=== PATIENT | male | born 1950 | race Hispanic/Latino ===

== ENCOUNTER → 2018-05-28 | Outpatient (CLI) | payer OTHER | END | disposition home or self-care (01) | LOC: SHCH 13:32 | PROVIDERS: ATTEND Internal Medicine Cardiovascular Disease | DX: I51.7 Cardiomegaly (principal); I35.0 Nonrheumatic aortic (valve) stenosis; E78.5 Hyperlipidemia, unspecified | CPT/HCPCS: 93306 ==

== ENCOUNTER → 2018-05-31 | Outpatient (CLI) | payer OTHER ==
[~2018-05-31] VITALS: Ht 188 cm; Wt 99.8 kg
[~2018-05-31] MED LIST: REGADENOSON 0.4 MG/5 ML PF SYG IVP SCH
== END | disposition home or self-care (01) ==
LOC: SHCH 07:45 → EDUNIT# 08:10
PROVIDERS: ATTEND Internal Medicine Cardiovascular Disease
DX: I35.0 Nonrheumatic aortic (valve) stenosis (principal); E78.5 Hyperlipidemia, unspecified
CPT/HCPCS: 78452; 93017; 96374; A9500 ×2; J2785

== ENCOUNTER 2018-06-27 05:44 | Day surgery (SDC) | payer OTHER ==
[2018-06-21 13:29] LABS: BASOPHILS % (AUTO) 0.6 % (0.0-5.0); EOSINOPHILS % (AUTO) 0.7 % (0.0-8.0); HEMATOCRIT 42.4 % (42-54); MEAN CORPUSCULAR HEMOGLOBIN 30.8 pg (27.0-33.0); MEAN CORPUSCULAR HGB CONC 34.1 g/dL (32.0-36.0); MEAN CORPUSCULAR VOLUME 90.3 fL (79-99); MONOCYTES % (AUTO) 8.9 % (3.0-13.0); NEUTROPHILS % (AUTO) 60.8 % (40.0-77.0); NUCLEATED RED BLOOD CELLS 0.1 % (0.0-0.19); PLATELET COUNT (AUTO) 266 K/uL (130-400); RED BLOOD CELL COUNT(AUTO) 4.69 MIL/uL (4.50-6.20); WHITE BLOOD COUNT (AUTO) 5.8 K/uL (4.8-10.8)
[2018-06-21 13:39] LABS: CREATININE 0.9 mg/dL (0.5-1.5); POTASSIUM 4.4 mmol/L (3.5-5.1)
[2018-06-21 13:41] VITALS: BP 131/68
[2018-06-21 13:50] LABS: INR 0.99 (0.85-1.15); PARTIAL THROMBOPLASTIN TIME 27.4 SEC (26.3-35.5); PROTHROMBIN TIME 10.4 SEC (9.6-11.6)
[2018-06-21 13:50] LABS: BILIRUBIN,URINE Negative (NEGATIVE); COLOR,URINE Yellow (YELLOW); GLUCOSE, URINE (UA) Negative (NEGATIVE); KETONES,URINE Negative (NEGATIVE); LEUKOCYTE ESTERASE ,URINE Negative (NEGATIVE); NITRATE,URINE Negative (NEGATIVE); OCCULT BLOOD,URINE Negative (NEGATIVE); PROTEIN,URINE Negative (NEGATIVE); UROBILINOGEN,URINE 0.2 mg/dL (0.2-1.0)
[2018-06-21 14:04] LABS: APPEARANCE,URINE CLEAR (CLEAR)
[2018-06-27] VITALS (12 sets, daily range): BP systolic 110–134; BP diastolic 64–70
[~2018-06-27] VITALS: Ht 186.7 cm; Wt 92.4 kg
[~2018-06-27 05:44] MED LIST changes: +ACET325T51 PO; +ASPI-555 PO; +CALC-456 PO; +MULT1TAB70 PO; +PHEN100C9 PO; -REGADENOSON 0.4 MG/5 ML PF SYG IVP SCH
[2018-06-27] MEDS ORDERED: SODIUM CHLORIDE 0.9% 1000ML 1,000 ML IV ONE (06:05)
[2018-06-27] MEDS ORDERED: NITROGLYCERIN 5 MG/ML 10 ML VIAL IV ONE (07:11)
[2018-06-27] MEDS ORDERED: HEPARIN SODIUM 1000UNIT/ML 10ML VIAL ONE (07:11)
[2018-06-27] MEDS ORDERED: IOHEXOL 350 MG/ML 100ML INFUS..BTL IV ONE ×2 (07:11→07:50)
[2018-06-27] MEDS ORDERED: LIDOCAINE HCL 2% 20ML ONE (07:12)
[2018-06-27] MEDS ORDERED: IOHEXOL-350 50ML VIAL IV ONE (07:12)
--- NOTE | 2018-06-27 07:15 | NUR ---
PROCEDURE PT TAKEN TO CAMPUS SECURITY DIRECTOR FOR RIGHT / LEFT HEART CATH VIA BED,NO DISTRESS NOTED. DENIES ANY PAIN OR DISCOMFORTS. SPOUSE AT BEDSIDE
[2018-06-27] MEDS ORDERED: SODIUM CHLORIDE 0.9% 1000ML 1,000 ML IV SCH (08:00)
[2018-06-27] MEDS ORDERED: SODIUM CHLORIDE 0.9% 10 ML VIAL IVP SCH (08:30)
--- NOTE | 2018-06-27 09:50 | NUR ---
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 PT AWAKE AND ALERT IN BED ,NO DISTRESS NOTED. VS STABLE. PLAN OF CARE DISCUSS WITH PT/ SPOUSE, PT INSTRUCTED TO KEEP BEDREST FOR 8 HOURS . TO CALL NURSE FOR ANY ASSISTANCE NEEDED. VERBALIZED UNDERSTANDING.
--- NOTE | 2018-06-27 11:26 | NUR ---
CONSULT DR. CONNER IN TO SEE PATIENT AND SPEAK TO FAMILY
--- NOTE | 2018-06-27 15:26 | NUR ---
REPORT REPORT GIVEN TO THIERNO BAR RN TO RESUME CARE OF PATIENT, PT LYING IN BED, NO DISTRESS NOTED , RIGHT GROIN DRESSING DRY AND INTACT,
--- NOTE | 2018-06-27 16:40 | NUR ---
PT DISCHARGED HOME, TOLERATING FLUIDS/FOOD, AMBULATING WELL, VOIDED PRIOR TO DISCHARGE. PT DENIES ANY EXCESSIVE PAIN, NAUSEA, OR DIZZINESS. EMERGENCY AND ROUTINE CARE GIVEN FOR RIGHT FEMORAL GROIN SITE. PT AND FAMILY REPORT UNDERSTANDING. PT AND FAMILY DENY ANY FURTHER QUESTIONS AT THIS TIME.
== END 2018-06-27 16:40 | disposition home or self-care (01) ==
LOC: DAH 05:44
PROVIDERS: ATTEND Internal Medicine Cardiovascular Disease
DX: I25.118 Atherosclerotic heart disease of native coronary artery with other forms of angina pectoris (principal); Z79.899 Other long term (current) drug therapy; Z98.890 Other specified postprocedural states; I35.0 Nonrheumatic aortic (valve) stenosis; E78.5 Hyperlipidemia, unspecified; I10 Essential (primary) hypertension; G40.909 Epilepsy, unspecified, not intractable, without status epilepticus; Z79.01 Long term (current) use of anticoagulants
CPT/HCPCS: 36415; 71045; 80048; 81003; 85025; 85610; 85730; 93005; 93460; A4606; C1769; C1893; C1894; J1644 ×2; J3490; J7030; Q9965; Q9967 ×2

== ENCOUNTER 2018-06-28 14:51 | Inpatient (IN) | payer OTHER | END 2018-07-12 13:35 | disposition home or self-care (01) | LOC: EDH 14:51 → 2CV 07-01 10:27 → 2DH 07-09 15:16 → 2CH 07-02 17:00 → 3CH 06-29 17:30 → EDHIP 20:45 → 2DH 06-30 20:07 | PROC: 021009W Bypass Coronary Artery, One Artery from Aorta with Autologous Venous Tissue, Open Approach (ICD-10-PCS; principal; 2018-07-01 10:39) | PROC: 02RF08Z Replacement of Aortic Valve with Zooplastic Tissue, Open Approach (ICD-10-PCS; 2018-07-01 10:39) | PROC: 02100Z9 Bypass Coronary Artery, One Artery from Left Internal Mammary, Open Approach (ICD-10-PCS; 2018-07-01 10:39) | PROC: 04QK0ZZ Repair Right Femoral Artery, Open Approach (ICD-10-PCS; 2018-07-01 10:39) | PROC: 5A1945Z Respiratory Ventilation, 24-96 Consecutive Hours (ICD-10-PCS; 2018-07-01 10:39) | DX: I25.10 Atherosclerotic heart disease of native coronary artery without angina pectoris (principal); J96.00 Acute respiratory failure, unspecified whether with hypoxia or hypercapnia; G92 Toxic encephalopathy; T81.718A Complication of other artery following a procedure, not elsewhere classified, initial encounter; F10.231 Alcohol dependence with withdrawal delirium; D62 Acute posthemorrhagic anemia; Z99.11 Dependence on respirator [ventilator] status; I35.0 Nonrheumatic aortic (valve) stenosis; I72.8 Aneurysm of other specified arteries; I72.4 Aneurysm of artery of lower extremity; G30.9 Alzheimer's disease, unspecified; F17.200 Nicotine dependence, unspecified, uncomplicated ==